=== PATIENT | male | born 1940 | race Caucasian/White ===

== ENCOUNTER 2018-04-12 18:08 | Emergency (ER) | payer MEDICARE ==
[~2018-04-12] VITALS: Ht 185.4 cm; Wt 95.0 kg
--- NOTE | 2018-04-12 18:33 | NUR ---
JOCY WAS AT A BAR DRINKING, FELL OFF BARSTOOL. UNKNOWN LOC. PT IS AOX3, DOES NOT KNOW WHAT YEAR IT IS. PT HAS A HX OF CONCUSSIONS IN THE PAST. NEURO EXAM NEGATIVE IN TRIAGE. PT PLACED ON CONT SPO2, BP, AND CARDIAC MONITORS, VSS.
[2018-04-12 18:56] LABS: BASOPHILS # (AUTO) 0.01 x10^3/uL (0-0.1); BASOPHILS % (AUTO) 0 % (0-1); EOSINOPHILS # (AUTO) 0.13 x10^3/uL (0-0.4); EOSINOPHILS % (AUTO) 2 % (1-7); LYMPHOCYTES # (AUTO) 2.48 x10^3/uL (1-3.4); LYMPHOCYTES % (AUTO) 37 % (22-44); MD NO; MEAN PLATELET VOLUME 6.8 fL (7.4-10.4); MONOCYTES # (AUTO) 0.63 x10^3/uL (0.2-0.8); MONOCYTES % (AUTO) 10 % (2-9); NEUTROPHILS # (AUTO) 3.41 x10^3/uL (1.8-6.8); NEUTROPHILS % (AUTO) 51 % (42-75); PLATELET COUNT 347 x10^3/uL (130-400)
[2018-04-12 19:06] LABS: ALBUMIN 4.1 g/dL (3.4-5.0); ANION GAP 8 mmol/L (5-15); CALCIUM 8.9 mg/dL (8.5-10.1); CHLORIDE 112 mmol/L (98-107)
--- NOTE | 2018-04-12 20:09 | NUR ---
PTS CHART UP FOR RECHECK
[2018-04-12 20:30] VITALS: BP 105/73
--- NOTE | 2018-04-12 20:53 | NUR ---
RECEIVED REPORT FROM ASHLIE MARCIAL
--- NOTE | 2018-04-12 21:08 | NUR ---
PT AMB IN [place] WITH STEADY GAIT. WITH PT TO TAKE HOME
[2018-04-13 13:51] LABS: MEAN CORPUSCULAR HEMOGLOBIN 31.5 pg (27.5-34.5); MEAN CORPUSCULAR HGB CONC 34.2 g/dL (33.2-36.2); MEAN CORPUSCULAR VOLUME 92.1 fL (81-97); RED BLOOD COUNT 5.09 x10^6/uL (4.38-5.82); RED CELL DISTRIBUTION WIDTH 13.3 % (9.4-14.8)
== END 2018-04-12 21:10 | disposition home or self-care (01) ==
LOC: EDSEX 18:08 → ED 21:04
DX: S09.8XXA Other specified injuries of head, initial encounter (principal); I10 Essential (primary) hypertension; R51 Headache; F10.120 Alcohol abuse with intoxication, uncomplicated; W07.XXXA Fall from chair, initial encounter; Y93.89 Activity, other specified; Y92.511 Restaurant or cafe as the place of occurrence of the external cause; Y99.8 Other external cause status
CPT/HCPCS: 36415; 70450; 80048; 80307; 82040; 85025; 93005; 99284